=== PATIENT | female | born 1960 | race Caucasian/White ===

== ENCOUNTER 2016-10-31 12:52 | Emergency (ER) | payer OTHER ==
[~2016-10-31] VITALS: Ht 167.6 cm; Wt 68.0 kg
[~2016-10-31 12:52] MED LIST: Z.0.NO CURRENT MEDS
[2016-10-31 12:55] VITALS: BP 144/82; PULSE 86; RESP 16; TEMP 98.1; O2SAT 99
--- NOTE | 2016-10-31 13:13 | PD ---
HPI Chief Complaint: Skin Problem Time Seen by Provider: 13:08 Travel History International Travel<30 days: No Contact w/Intl Traveler<30days: No Traveled to known affect area: No History of Present Illness HPI 56-year-old female presents to the emergency room for evaluation of a nonpainful Edgar lesion to her right medial thigh that occurred just prior to arrival. Patient states she first noticed it after coming in from working outside all morning. She states it is not painful. She has not done anything for her symptoms. She was concerned was a spider pain. Patient reports a lot of ants in the area that has attacked her previously on her right ankle. PFSH Past Medical History Autoimmune Disease: No Heart Rhythm Problems: No Cancer: No Cardiovascular Problems: No High Cholesterol: No Chest Pain: No Congestive Heart Failure: No Diminished Hearing: No Endocrine: No Gastrointestinal Disorders: No Genitourinary: No Hypertension: No Immune Disorder: No Implanted Vascular Access Dvce: Yes Kidney Stones: No Musculoskeletal: Yes Neurologic: No Psychiatric: No Reproductive: No Respiratory: No Immunizations Current: Yes Renal Failure: No Tetanus Vaccination: Unknown Influenza Vaccination: No ?: Not Menopausal: Yes Past Surgical History Abdominal Surgery: No AICD: No Arteriovenous Shunt: No Body Medical Devices: PINS IN RIGHT WRIST Cardiac Surgery: No Section: Yes Ear Surgery: No Endocrine Surgery: No Eye Surgery: No Genitourinary Surgery: No Gynecologic Surgery: No Insulin Pump: No Joint Replacement: No Oral Surgery: No Pacemaker: No Thoracic Surgery: No Other Surgery: Yes (RIGHT WRIST SURGERY) Social History Alcohol Use: Yes (2X WEEK) Tobacco Use: Yes (1/2 PPD) Substance Use: No Allergies-Medications (Allergen,Severity, Reaction): Coded Allergies: No Known Allergies (Verified , 10/31/16) Reported Meds & Prescriptions Reported Meds & Active Scripts Active No Active Prescriptions or Reported Medications Review of Systems Except as stated in HPI: all other systems reviewed are Neg Physical Exam Narrative GENERAL: Well-nourished, well-developed female in no acute distress. Afebrile. Ambulatory. SKIN: Focused skin assessment warm/dry. There is a 1.5 cm annular lesion to the right medial thigh with central clearing and a 0.5 cm intact vesicle. No lymphangitis or erythema. HEAD: Normocephalic. EYES: No scleral icterus. No injection or drainage. NECK: Supple, trachea midline. No JVD or lymphadenopathy. CARDIOVASCULAR: Regular rate and rhythm without murmurs, gallops, or rubs. RESPIRATORY: Breath sounds equal bilaterally. No accessory muscle use. PSYCHIATRIC: No delusional thought processes. No hallucinations. Data Data Last Documented VS Vital Signs Date Time Temp Pulse Resp B/P Pulse Ox O2 Delivery O2 Flow Rate FiO2 10/31/16 12:55 98.1 86 16 144/82 99 MDM Medical Decision Making Medical Screen Exam Complete: Yes Emergency Medical Condition: Yes Medical Record Reviewed: Yes Differential Diagnosis Ant bite versus shingles versus Narrative Course 56-year-old female presents to the emergency room for evaluation of a lesion to her right medial thigh that she noticed after coming in from working in her yard. Physical exam reveals a 1.5 cm circular lesion with central clearing and a 0.5 cm vesicle. It is nontender. Likely an insect bite from bee, wasp, or ant. Patient has many other, older ant bites on her right ankle. There is no evidence of bacterial infection at this time. Patient was educated on leaving the blister intact to protect her skin. She was given concerning symptoms to return to the emergency room. She understands and agrees to plan. Diagnosis Primary Impression: Insect bite of right leg Qualified Code: S80.861A - Insect bite of right leg, initial encounter Referrals: Primary Care Physician Patient Instructions: General Instructions, Insect Bite or Sting (ED) Additional Instructions: Rest and drink plenty of fluids. Do not pick at blister. If it pops, apply triple antibiotic ointment. Apply heat to the affected area for 20 minutes at a time, as needed for pain and swelling. Follow-up with a primary care physician. Return to the emergency room for worsening symptoms such as increasing redness, black center of wound, or development of more blisters surrounding the first. Scripts No Active Prescriptions or Reported Meds Disposition: 01 DISCHARGE HOME Condition: Stable Arelis Bonds October 31, 2016 13:13
== END 2016-10-31 13:22 | disposition home or self-care (01) ==
LOC: PHEFT 12:52
DX: S80.861A Insect bite (nonvenomous), right lower leg, initial encounter (principal); F17.210 Nicotine dependence, cigarettes, uncomplicated; Y92.017 Garden or yard in single-family (private) house as the place of occurrence of the external cause; Y93.H2 Activity, gardening and landscaping; Y99.9 Unspecified external cause status
CPT/HCPCS: 99282

== ENCOUNTER 2017-05-12 15:31 | Emergency (ER) | payer OTHER ==
[~2017-05-12] VITALS: Ht 167.6 cm; Wt 67.2 kg
[2017-05-12 16:03] VITALS: BP 151/81; PULSE 93; RESP 16; TEMP 98.5; O2SAT 96
[2017-05-13] MEDS ORDERED: ROBA500T PO (11:17)
[2017-05-13] MEDS ORDERED: IBUP1TAB7 PO (11:17)
== END 2017-05-12 17:26 | disposition left against medical advice (07) ==
LOC: PHED 15:31 → PHEFT 17:26
DX: M54.9 Dorsalgia, unspecified (principal); R51 Headache; Z53.21 Procedure and treatment not carried out due to patient leaving prior to being seen by health care provider
CPT/HCPCS: 99281

== ENCOUNTER 2017-05-13 09:58 | Emergency (ER) | payer OTHER ==
[2017-05-13 10:02] VITALS: BP 168/79; PULSE 78; RESP 18; TEMP 98.2; O2SAT 99
[2017-05-13] MEDS ORDERED: ROBA500T PO (11:17)
[2017-05-13] MEDS ORDERED: IBUP1TAB7 PO (11:17)
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
== END 2017-05-13 11:23 | disposition home or self-care (01) ==
LOC: PHEFT 09:58
DX: S39.012A Strain of muscle, fascia and tendon of lower back, initial encounter (principal); V43.52XA Car driver injured in collision with other type car in traffic accident, initial encounter; Y92.410 Unspecified street and highway as the place of occurrence of the external cause
CPT/HCPCS: 99283